=== PATIENT | female | born 1930 | race Caucasian/White ===

== ENCOUNTER 2016-10-13 19:49 | Inpatient (IN) | payer MEDICARE, OTHER ==
--- NOTE | ~2016-10-13 | CN ---
Consultation Report [facility] [address] [place]. [address] NAME: ANDERS GIPSON : 30 STATUS : ADM IN [facility]#: [id number] AGE: 86 ADM/REG DATE : 10/13/16 MR#: [id number] REPORT SERV DATE: 10/14/16 DICTATED BY: RODRIGO DRAPER DATE: 10/14/16 REPORT STATUS : Draft TRANSCRIBED BY: MODL DATE: 10/14/16 INFECTIOUS DISEASE CONSULT DATE OF CONSULTATION: REASON FOR CONSULT: MSSA bacteremia HISTORY OF PRESENT ILLNESS: 86 years old white lady, with reported history of chronic kidney disease, diabetes, hypertension, TIA, hypothyroidism, dementia, possible CHF, and right hip replacement, who was admitted at [facility] for fever, hypoxemia, and right hip pain. The patient provided some information and her granddaughter who knows few data. I also reviewed the papers from [facility]. The patient had the right total hip replacement done in [place] in 2004 or 2011 it is not clear. She has not had problems until within the last year or so. She might have had right hip pain for several months. She had a toe infection several months ago. The hip became severe and she could not walk for about a week. She then it sounds like developed fever, whole body aches, and may be shortness of breath, and she was taken to [facility]. There they thought that maybe she has a pneumonia and started on Rocephin and azithromycin. Then blood cultures came positive reportedly for MSSA. Antibiotics were changed at some point to vancomycin, meropenem, and azithromycin, and then to Ancef. On admission urinalysis was found to be remarkable. WBC was 12. Procalcitonin was not elevated. Creatinine was 1.4. We do not really have further data from [facility] for exam. We do not have the echocardiogram report, any imaging beside the chest x-ray, but it sounds like they tried to aspirate the hip on the 10/11/2016, could not get anything, so, I guess no cultures were done. She was transferred here last night supposedly for ID consult and because the family wanted her transferred. Highest temp since transfer was 100.8. She is on 2 L of oxygen. Lab work here shows a CRP of 153, BNP of 713, hemoglobin A1c of 5.4, WBC 9, hemoglobin 9, segments 73, bands 1, INR 2.8. Upon discussing with the patient, she has some dyspnea. She has also bedridden now. She has severe right hip pain. She is afraid to move or turn. She is practically bedridden. She has she has been constipated for several days. No vomiting, maybe occasional cough. She has a Lares catheter before that, she reported no urinary symptoms. No recent skin lesions are reported. No other joints hurting. PAST MEDICAL HISTORY: As mentioned above plus history of cholecystectomy and hyperlipidemia. SOCIAL HISTORY: She is a . Lives with her daughter. She has no pets. Does not smoke. She might have had secondhand smoking exposure in the past. FAMILY HISTORY: Diabetes. Consultation Report [address] [place] [address] [place]. [address] NAME: ANDERS GIPSON : 30 STATUS : ADM IN [facility]#: [id number] AGE: 86 ADM/REG DATE : 10/13/16 MR#: [id number] REPORT SERV DATE: 10/14/16 DICTATED BY: RODRIGO DRAPER DATE: 10/14/16 REPORT STATUS : Draft TRANSCRIBED BY: MONICA DATE: 10/14/16 ALLERGIES: SULFA CAUSES STOMACH UPSET. MEDICATIONS: I do not have the initial admission medications from [facility]. The H and P there mentions amlodipine, atenolol, Celexa, clonazepam at bedtime, Donepezil at bedtime, gabapentin, Lasix, levothyroxine, potassium, and Coumadin. PHYSICAL EXAMINATION: GENERAL: On exam, she is awake. HEENT: Mild oral mucosal erythema. LUNGS: Coarse sounds. Clear to auscultation. HEART: Regular rhythm. Maybe a soft murmur at the upper sternal borders and precordial area. ABDOMEN: Obese. Nontender to palpation. MUSCULOSKELETAL: Right hip, she is afraid to move it. There is an area of tenderness over the right side of the sacrum. No tenderness to palpation over the sacral spine. No buttock decubitus. When she moves the right ankle the right hip hurts. She has a Lares catheter. Feet without any open wounds. ASSESSMENT AND PLAN: 1. Reported Methicillin-sensitive Staphylococcus aureus bacteremia and sepsis at [facility]. 2. Severe right hip pain. At some point, she indicated the groin, the posterior hip, so, it is really unclear. She has a right hip replacement. 3. History of dementia, chronic kidney disease, hypertension, atrial fibrillation. With the pain elicited in the right hip by moving the foot one might consider sciatica type pain. Hip x-rays and MRIs were ordered but not done. She was seen by Orthopedics. Continue Ancef, repeat blood cultures, request more information from [facility]. Depending on the findings, we might need to consider transesophageal echocardiogram. Also maybe we can get more information from the other family members. RASHEL/MONICA Rodrigo Draper M.D. / [id number] CC: Joon Moon M.D.
--- NOTE | ~2016-10-13 | OP ---
Record Of Operation [facility] [address] [place]. 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 PROCEDURE: Right total hip revision arthroplasty, complex. SURGEON: Masood Simmons M.D. AUTO MACHINIST: See chart. DESCRIPTION OF PROCEDURE: The patient was taken to the operating room and placed supine on the table in normal fashion without incident. General anesthetic was induced per the anesthesiologist. The patient was carefully positioned, padded, prepped, and draped in normal sterile fashion. Sharp dissection was made through the old incision with electrocautery through the fat. Sharp quad splitting approach was carried out. The IT band was split in line with its fibers. There was an area of fatty necrosis that was sent for cultures. This was prior to going to the IT band. After going to the IT band, there was no evidence of infection, but only hematoma. The Charnley retractor was placed over moist laps. Posterior capsulectomy was performed. There was abundant granulation tissue and synovial tissue, but no evidence of purulence whatsoever. She has a very severe protrusio deformity and grossly loose prosthesis. I osteotomized the trochanter to allow access to the deeply protruded bipolar arthroplasty-type device. This allowed for it to be dislocated after osteotomizing the superolateral aspect of the acetabulum. The femoral component was easily removed as it was grossly loose. There was benign-appearing synovium and granulation and lytic tissue around it, none of which appeared infected. I curetted out the acetabular fossa and used sequential reamers to a 55 and then placed a trial socket. With the trial liner in place, attention was directed to the proximal femur which was prepared with sequential reamers. I felt several times that a long reverse biting curette to be sure there was no violation of the canal distally. Frozen sections were sent of tissue from the hip joint itself. I was concerned that one area was around an old suture. Sequential reamers were used to a 16 and with trial components in place, there was excellent stability and recreation of a significant portion of her leg length. I reviewed the frozen section results with the pathologist at length who said there were many areas that appeared not to be infected, but there was one area that had acute inflammation. In the setting of her being 86 years old, having severe and incapacitating pain by her report for several months stating that it has hurt for approximately 10 years since it was done and now and knowing how difficult a two stage would be on her, I felt that the frozen section results were not consistent with the gross and clinical presentation, and therefore based on the majority of the frozen section looking like no infection and the fact that Record Of Operation [facility] [address] [place]. [address] NAME: ANDERS GIPSON : 30 STATUS : ADM IN PAT#: [id number] AGE: 86 ADM/REG DATE : 10/13/16 MR#: [id number] REPORT SERV DATE: 10/18/16 DICTATED BY: BE SIMMONS DATE: 10/18/16 REPORT STATUS : Draft TRANSCRIBED BY: MONICA DATE: 10/18/16 there clearly was no gross evidence of infection, I opted to treat her as though this was a single-stage reimplantation for infection. I meticulously debrided the soft tissue with the copious irrigation with pulsatile lavage for several liters. I proceeded with the reconstruction placing the cable around the proximal aspect of the distal femur, it was provisionally tightened. The actual 56 mm multi-hole cup was placed and impacted. Multiple screws were placed in a standard fashion with drill depth gauge and self-tapping screw placement. They gave excellent fixation. With the trial liner in place, the actual 8 inch, 16.5 small solution stem was placed, impacted, the previously mentioned cable was tightened and crimped. I placed the actual constrained liner that was impacted, new ball placed on the cleansed trunnion. Hip relocated and the locking ring locked into position. Two cables were passed around the proximal femur just distal to the lesser trochanter around the trochanteric osteotomized fragment which with a cable tree inspector was used to anatomically repair the trochanter. These were tightened, crimped, and cut short. The wound was again copiously irrigated. I placed the absorbable antibiotic beads. It contained vancomycin and tobramycin in case it was a real finding on her frozen section. It should be noted that while she was reported to have been bacteremic at an outside hospital that the most recent blood cultures as well as the aspirate from her hips were noted to be negative. I did attempt a cell count on her hip but because it was so clotted was able to get useful information, but did get a gram stain reviewed few white blood cells and no organisms and of course this was all preoperatively. The hip was carefully closed in a layered fashion over a medium ConstaVac drain distally and anteriorly. COMPLICATIONS: None. SPECIMENS: Frozen reported cultures. BLOOD LOSS: About 300 mL. She was noted to start with a preoperative hemoglobin in the 9 range and received 2 units of intraoperative blood. WTB/MODL Masood Simmons M.D. / [id number] CC: Shanel Goldsmith M.D.
--- NOTE | ~2016-10-13 | DS ---
Discharge Summary [facility] [address] [place] [place]. [address] NAME: ANDERS GIPSON : 30 STATUS : ADM IN [facility]#: [id number] AGE: 86 ADM/REG DATE : 10/13/16 MR#: [id number] REPORT SERV DATE: 10/22/16 DICTATED BY: SHANEL FAN DATE: 10/21/16 REPORT STATUS : Draft TRANSCRIBED BY: MODL DATE: 10/21/16 ADMISSION DATE: 10/13/2016 DISCHARGE DATE: DISCHARGE DIAGNOSES: Current interim discharge summary diagnoses include: 1. Methicillin-susceptible Staphylococcus aureus bacteremia, the patient has been started on Ancef. 2. 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 Gustavo Ross on 10/18/2016. 3. Suspected right hip infection though cultures have remained negative as of today. 4. Chronic atrial fibrillation with bradycardia on admission, resolved. 5. Diabetes type 2, hemoglobin A1c 5.4. 6. Hypertension. 7. Postoperative anemia, status post transfusion. 8. Hypothyroidism. 9. Dementia. 10.Morbid obesity. 11.Debility and weakness. CONSULTANTS ON THE CASE: 1. Dr. Rodrigo Vazquez, Infectious Disease. 2. Dr. Chris Vu, Cardiology. 3. Dr. Gustavo Ross, Orthopedics. PROCEDURES DONE DURING THIS HOSPITALIZATION: Include a right total hip revision arthroplasty for a failed right total hip arthroplasty with suspected possible infected right hip and sepsis on admission. Also, during this hospitalization, the patient underwent a CT of the abdomen and pelvis on 10/16/2016 showing the patient has anasarca, no suspicious fluid collections, diverticulosis of the colon with no inflammation, cardiomegaly, and right renal cyst which is measuring 2.9 x 2.4 x 1.7 cm where as a large amount of artifact in the pelvis due to the right total hip prosthesis but no suspicious fluid collection. Also, the patient underwent an MRI of the lumbar spine on 10/15/2016 showing no stenoses. There was abundant edema in the presacral space and in the dependent subcutaneous tissue in the back related likely to third-spacing of fluid but no focal collection could be identified. An MRI of the pelvis without contrast has been ordered on the , and this showed some fluid collection in the posterolateral with respect to the hip joint. It has been followed by an MRI with contrast showing a small triangular fluid collection with extensive superficial subcutaneous edema, clinical correlation recommended for cellulitis. Chest x-ray showed some bilateral infiltrates likely secondary to mild congestion. Blood cultures remain negative at discharge. Fluid cultures and surgery species cultures have remained currently negative, and there is an echo from [facility] from 10/08/2016 that shows normal appearance of the valves, just mild mitral regurgitation, no stenoses, normal appearance of the tricuspid valve, no pericardial effusion, normal left ventricular systolic function, normal left atrium. This is a very pleasant 86-year-old female, who has been admitted by Dr. Roger Nazario on Discharge Summary [address] [address] NAME: ANDERS GIPSON : 30 STATUS : ADM IN [facility]#: [id number] AGE: 86 ADM/REG DATE : 10/13/16 MR#: [id number] REPORT SERV DATE: 10/22/16 DICTATED BY: SHANEL FAN DATE: 10/21/16 REPORT STATUS : Draft TRANSCRIBED BY: MONICA DATE: 10/21/16 10/14/2016; transferred from [facility] to our hospital for further evaluation and workup of MSSA bacteremia. For about one month or so, according to the patient and the family, the patient had had increasing right leg pain. She did have, according to the patient and the family, multiple prior surgeries on the right hip and usually walks with a walker for balance, but for at least one week prior to admission, she walked very hardly lately due to severity of the right hip pain. There was also reported fever that was intermittent and the progressive deterioration of her functional status with confusion to the point that she went to the hospital. Her right total hip replacement had been done in [place] in 2004. As I said, the hip pain became so severe that she could not walk for about one week, and she developed fever, body aches, and shortness of breath. They went to [facility], they thought she might have pneumonia, but the blood cultures came positive for MSSA. The patient has been initially at some point on vancomycin/meropenem but changed to Ancef, and then sent to [facility]. The patient's family requested transfer to [facility], and the patient has been transferred for further evaluation and treatment. For further details, please see history and physical exam of Dr. Roger Nazario. The patient has been seen in consult initially for her MSSA bacteremia and sepsis at [facility] by Infectious Disease. It was unclear initially the source of the MSSA bacteremia. Except the severity of the right hip pain, there were no other suspicious sources of infection. X- rays and MRIs have been ordered as above and Orthopedics has been consulted. The patient has been seen by Dr. Gustavo Ross from Ortho Service, who evaluated the patient, looked at the images, and after discussing with Dr. Rodrigo Vazquez, although there were no really clear signs of infection and Radiology has been consulted for a fluoro-guided right hip aspiration which has not yielded any positive cultures. However, due to the severity of the right hip pain and possibility that was questionable and right total hip arthroplasty, Dr. Gustavo Ross and Dr. Rodrigo Vazquez agree that the patient will benefit from a right hip revision which has been performed by Dr. Ross on 10/18/2016. So far, the cultures have remained negative. The patient has been seen in consult as well as by [facility], Dr. Chris Vu, due to the fact that she has developed significant bradycardia on admission. Her beta-blockers have been held, she has been watched, no further recommendation per Cardiology has been given, and her bradycardia slowly resolved. There were no indications for pacemaker. Currently, the patient is receiving Ancef per Infectious Disease recommendation. The duration of the Ancef would be about [address] Rodrigo Vazquez, and the patient has been referred to inpatient rehab. Hopefully, the patient would be able to go shortly to [facility]. The patient has been recovering after surgery very slowly, but she has been referred to [facility] for inpatient rehab. MEDICATIONS: Current medications at interim discharge summary include Norvasc 10 mg p.o. daily, Ancef 2 g IV every 8 hours, Celexa 20 mg p.o. daily, Klonopin 0.5 p.o. at bedtime, Colace 100 t.i.d., Aricept 10 mg p.o. at bedtime, Pepcid 20 p.o. daily, iron sulfate 300 p.o. at breakfast and supper, NovoLog sliding scale level 1, Synthroid 88 mcg p.o. daily, Claritin 10 mg p.o. daily, Namenda 5 mg p.o. at bedtime and 10 mg p.o. daily, multivitamin one tablet p.o. daily, MiraLAX one packet p.o. daily, and Coumadin sliding scale. Currently, patient awaiting inpatient rehab. My partner is going to start seeing Anders Wheat from 10/23/2016. [address]charge Summary [address] [place] [address] NAME: ANDERS GIPSON : 30 STATUS : ADM IN [facility]#: [id number] AGE: 86 ADM/REG DATE : 10/13/16 MR#: [id number] REPORT SERV DATE: 10/22/16 DICTATED BY: SHANEL FAN DATE: 10/21/16 REPORT STATUS : Draft TRANSCRIBED BY: MONICA DATE: 10/21/16 CF/MONICA Shanel Fan M.D. / [id number] CC: Shanel Fan M.D.
--- NOTE | ~2016-10-13 | CN ---
Consultation Report [facility] [address] [place]. [address] NAME: ANDERS GIPSON : 30 STATUS : ADM IN [facility]#: [id number] AGE: 86 ADM/REG DATE : 10/13/16 MR#: [id number] REPORT SERV DATE: 10/17/16 DICTATED BY: HORACE LUTZ DATE: 10/17/16 REPORT STATUS : Draft TRANSCRIBED BY: MODL DATE: 10/17/16 CARDIOVASCULAR CONSULTATION DATE OF CONSULTATION: 10/17/2016 CHIEF COMPLAINT: Bradycardia. HISTORY OF PRESENT ILLNESS: The patient is an 86-year-old woman who sees my partner, Dr. Ventura Campa in [place]. From a cardiovascular standpoint, she has a history of chronic atrial fibrillation and previous TIA, on long-term anticoagulation with Coumadin. She is rate controlled with atenolol 50 mg daily. She has no history of coronary artery disease or congestive heart failure. Last echocardiogram in 2009 shows EF 65%. She was admitted initially to [facility] with concerns about staph sepsis and transferred to [facility] for further evaluation with concerns of possible infected hip. She is being seen by the ID Service and Orthopedic Service. We are consulted secondary to concerns of bradycardia developing over the last 1-2 days. Heart rates in the 30s at night with up to a 2-3 second pause at times. She has been off her atenolol for about 30 hours or so. Heart rate is now in the 40s. The patient is asymptomatic with no symptoms of syncope, presyncope, or chest pain. PAST MEDICAL HISTORY: 1. Chronic atrial fibrillation. 2. History of TIA. 3. Hypertension. 4. Hypercholesterolemia. 5. Type 2 diabetes. SOCIAL HISTORY: She does not smoke or drink alcohol. FAMILY HISTORY: There is no family history of early coronary artery disease. REVIEW OF SYSTEMS: A complete review of systems was obtained, which is negative in detail except as mentioned above in the HPI. ALLERGIES: SULFA. MEDICATIONS: At home included: Atenolol 50 mg, now stopped; calcium; citalopram; benazepril; hydrocodone; iron; Jantoven 3 mg daily; Synthroid 88 mcg daily; nitroglycerin; pioglitazone; torsemide 20 mg daily; and tramadol. PHYSICAL EXAMINATION: Consultation Report [facility] [address] [place]. [address] NAME: ANDERS GIPSON : 30 STATUS : ADM IN PAT#: [id number] AGE: 86 ADM/REG DATE : 10/13/16 MR#: [id number] REPORT SERV DATE: 10/17/16 DICTATED BY: HORACE LUTZ DATE: 10/17/16 REPORT STATUS : Draft TRANSCRIBED BY: MONICA DATE: 10/17/16 VITAL SIGNS: Blood pressure 150/67, heart rate of 49 and regular, respiratory rate of 14. GENERAL: Comfortable, in no acute distress. HEENT: Anicteric. No xanthelasma. Lips without cyanosis. NECK: No JVD. Carotids 2+ and symmetric. No carotid bruits. LUNGS: CTA bilaterally. No wheezes or rhonchi. No accessory muscle use. COR: Bradycardic. Irregular. Normal S1, S2. ABD: Soft, nontender, nondistended. Normal bowel sounds. No abdominal bruits. EXT: No clubbing, cyanosis or edema 2+ and symmetric distal pulses. SKIN: Warm. Dry. No venous stasis changes. MS: No kyphosis. NEURO/PSYCH: Oriented x3. No anxiety or depression. LABORATORY STUDIES: Potassium of 4.8, creatinine of 0.84, hematocrit of 29, troponin of less than 0.02. EKG: A 12-lead EKG is not available, but telemetry strips show atrial fibrillation, variable heart rates now in the 40s. IMPRESSION: This is an 86-year-old woman with a longstanding history of chronic atrial fibrillation presenting with a clinical syndrome consistent with sick sinus syndrome. We will try her off her atenolol. Hopefully, her heart rate will improve. She is not really having much in the way of symptoms. I am not too anxious to consider a pacemaker, since there is an active staph bacteremia. DONNIE/MONICA Horace Lutz M.D. / [id number] CC: Shanel Goldsmith M.D.
--- NOTE | ~2016-10-13 | HP ---
History And Physical [facility] [address] [place]. [address] NAME: ANDERS GPISON : 30 STATUS : ADM IN [facility]#: [id number] AGE: 86 ADM/REG DATE : 10/13/16 MR#: [id number] REPORT SERV DATE: 10/14/16 DICTATED BY: SAADIA VILLALPANDO DATE: 10/13/16 REPORT STATUS : Draft TRANSCRIBED BY: MODL DATE: 10/13/16 DATE OF ADMISSION: 10/13/2016 CHIEF COMPLAINT: An 86-year-old female presenting with increasing right hip pain, debilitation, and transferred to our hospital for further evaluation and workup of MSSA bacteremia. HISTORY OF PRESENT ILLNESS: The patient's history was obtained through an interview with the patient, and telephone conversation with her son coupled with review of medical records obtained from [facility]. The patient for about a month or so has been having increasing right leg pain. Back around 2011 she had a right hip replacement, but generally had no pain related to this until this last month. But it has just been in the last week that the right hip has become excruciatingly painful with pain radiating down into the right knee and all the way to the feet, sometimes going up into the middle back as well. It is a 10/10 pain and it has gotten to the point where for about a week the patient has been unable to ambulate without assistance. This was one of the main complaints that she had when she presented to [facility] on 10/07/2016. But also when the patient had presented to [facility], she had an O2 saturation of 80% on room air. Had a temperature of 100.1, and an elevated white blood cell count just over 11. Initial blood cultures were found to be positive for MSSA bacteremia which was sensitive to cefazolin, and the patient has improved with supportive care of her pulmonary disease (seemed to have been pulmonary edema exacerbated by acute illness) and her infection seems to be under improved control with IV antibiotics. At outlying facility an attempt to aspirate the right hip was made, but was "unsuccessful." There is also a reported negative transthoracic echocardiogram performed. The patient has no current shortness of breath. No chest pain. No nausea or vomiting. No fevers and chills now. The family states that she has had increasing confusion related to her dementia over the last few weeks, but it seems to have improved with hospitalization. No change of bowel or bladder habit. No cough. No rash. REVIEW OF SYSTEMS: Otherwise, a 14-point review of systems was obtained and was negative. PAST MEDICAL HISTORY: 1. Diabetes. 2. Possible congestive heart failure ? atrial fibrillation, on Coumadin, followed by Dr. Campa. History And Physical [address] [address] NAME: ANDERS GIPSON : 30 STATUS : ADM IN [facility]#: [id number] AGE: 86 ADM/REG DATE : 10/13/16 MR#: [id number] REPORT SERV DATE: 10/14/16 DICTATED BY: SAADIA VILLALPANDO DATE: 10/13/16 REPORT STATUS : Draft TRANSCRIBED BY: MONICA DATE: 10/13/16 3. Hypertension. 4. Dementia. 5. Transient ischemic attack. 6. Irritable bowel syndrome. 7. Anemia. 8. Elevated cholesterol. 9. Hypothyroidism. PAST SURGICAL HISTORY: 1. Cholecystectomy. 2. Right hip surgery in 2011. 3. Hiatal hernia surgery ? ALLERGIES: UNKNOWN AT THIS TIME. WE HAVE REQUESTED PHARMACY TO INVESTIGATE. SOCIAL HISTORY: No tobacco abuse. No alcohol abuse. Lives in [place], [place], with her daughter. She has two daughters and one son. The son lives next door. She has been a for about 20 years. FAMILY HISTORY: Diabetes. Son of "paint poisoning". CURRENT MEDICATIONS: 1. Cefazolin 2 g IV q.8 hours. 2. Citalopram 10 mg p.o. daily. 3. Clonazepam 0.5 mg p.o. daily. 4. Aricept 10 mg p.o. daily. 5. Fentanyl 25 mcg patch. 6. Lasix 20 mg daily. 7. Neurontin 100 mg p.o. t.i.d. 8. Insulin. 9. Levothyroxine 88 mcg p.o. daily. 10.Potassium. 11.Tylenol. 12.Clonidine p.r.n. 13.Dilaudid p.r.n. 14.Zofran p.r.n. PHYSICAL EXAMINATION: VITAL SIGNS: Temperature 98.2, pulse 75, blood pressure 149/66, respiratory rate 18, and O2 saturation 96% on room air. GENERAL: A pleasant, cooperative female, in no evidence of acute distress. HEENT: Pupils equal, round, and reactive to light. No conjunctival pallor. No scleral icterus. Nares are patent. Oropharynx is clear of obstruction. Moist mucous membranes. NECK: Trachea midline. No thyromegaly. LYMPH: No cervical lymphadenopathy. No supraclavicular lymphadenopathy. RESPIRATORY: Clear to auscultation at bases. No wheezes, rales, or rhonchi. Normal respiratory effort. History And Physical [address] [place]. [address] NAME: ANDERS GIPSON : 30 STATUS : ADM IN [facility]#: [id number] AGE: 86 ADM/REG DATE : 10/13/16 MR#: [id number] REPORT SERV DATE: 10/14/16 DICTATED BY: SAADIA VILLALPANDO DATE: 10/13/16 REPORT STATUS : Draft TRANSCRIBED BY: MONICA DATE: 10/13/16 CARDIOVASCULAR: Regular rate and rhythm. No murmurs, rubs, or gallops. No extremity edema is appreciated. ABDOMEN: Soft, nontender, and nondistended. Normal bowel sounds auscultated throughout. No hepatosplenomegaly. DERMATOLOGICAL: Warm and dry extremities. No pallor. No cyanosis. No erythema over the right hip. PSYCHIATRIC: Normal affect. Good mood. Alert and oriented x3. LABORATORY DATA: White blood cell count 10.5, hemoglobin 9.2, hematocrit 28.3, and platelets 310. Sodium 136, potassium 4.3, chloride 104, bicarb 25, BUN 19, creatinine 0.77, and glucose 174. INR 2.8. STUDIES: Reported echocardiogram was negative. ASSESSMENT AND PLAN: 1. Methicillin-sensitive Staphylococcus aureus bacteremia. Place on IV vancomycin. Consult Dr. Vazuqez, Infectious Disease physician. Discussed the case over the phone with him. 2. Right hip pain, suspected infection? We will obtain an MRI with and without contrast of the lumbosacral spine and right hip. The patient "failed" joint aspiration at [facility]. 3. Dementia. 4. Atrial fibrillation. Good INR. Check telemetry. 5. Diabetes. Check hemoglobin A1c. Place on sliding scale insulin. MODESTAL/CRL Saadia Villalpando M.D. / [id number] CC: Jed Daniels M.D. Lindsay C Crawford, M.D.
--- NOTE | ~2016-10-13 | DS ---
Discharge Summary [place] [id number] [place]. [address] NAME: ANDERS GIPSON : 30 STATUS : DIS IN PAT#: [id number] AGE: 86 ADM/REG DATE : 10/13/16 MR#: [id number] REPORT SERV DATE: 10/25/16 DICTATED BY: VALENTE HOU DATE: 10/24/16 REPORT STATUS : Draft TRANSCRIBED BY: MODL DATE: 10/24/16 ADMISSION DATE: 10/13/2016 DISCHARGE DATE: 10/24/2016 CONSULTING PHYSICIANS: Dr. Ross for Ortho. Dr. Vazquez for ID. [facility] covering for Dr. Campa as an outpatient pediatric np. FINAL DIAGNOSES: 1. Methicillin-susceptible Staphylococcus aureus bacteremia. 2. 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 3. Atrial fibrillation and bradycardia. 4. History of transient ischemic attack. 5. Hypertension. 6. Diabetes. 7. Postoperative anemia, status post 4 units of blood transfusion. 8. Obesity. 9. Hypothyroidism. 10.Dementia. HOSPITAL COURSE: Please refer to the H and P done by Dr. Roger Nazario on 10/14/2016 and the interim discharge summary done by Dr. Goldsmith on 10/22/2016. Since I took care of this patient again, the patient has been doing well and cleared from both ID and orthopedic point of view. Cardiology had signed off several days back and said to keep the patient off atenolol and she is not a candidate for any kind of an intervention. The patient was waiting for rehab and we finally got one for her today and she will be transferred there. She will be following up with the rehab doctor and following up with PCP, Dr. Velásquez, after rehab discharge; follow up with Ortho in two weeks; follow up with Dr. Vazquez in two to four weeks with a weekly complete metabolic panel and CBC, and follow up with Cardiology, Dr. Campa. The patient will be on the following medications, Norvasc 10 mg a day, Ancef 2 g IV q.8 for 34 more days, Celexa 20 mg a day, Colace 100 mg three times a day, Aricept 10 mg a day, Pepcid 20 mg a day, iron 300 mg twice a day, Synthroid 88 mcg a day, Claritin 10 mg a day, Namenda 5 mg at bedtime and 10 mg in the morning, multivitamin once a day, MiraLAX one packet a day, Coumadin per sliding scale, clonazepam 0.5 mg at bedtime p.r.n. anxiety. She will be off the atenolol, potassium, torsemide, and aspirin. She can take Wolcott 7.5/325 one tab three times a day p.r.n., Voltaren gel as needed, and Nitrostat as needed. She will be off the Actos, as her diabetes has been under control with the most recent hemoglobin A1c at 5.4, and this would avoid further edema on the patient. This has been explained to the patient, daughter, and granddaughter. TIME SPENT: 35 minutes. Discharge Summary [address] [address] NAME: ANDERS GIPSON : 30 STATUS : DIS IN PAT#: [id number] AGE: 86 ADM/REG DATE : 10/13/16 MR#: [id number] REPORT SERV DATE: 10/25/16 DICTATED BY: VALENTE HOU DATE: 10/24/16 REPORT STATUS : Draft TRANSCRIBED BY: MONICA DATE: 10/24/16 TRISTON/MONICA Valente Hou M.D. / [id number] CC: Jed Daniels M.D.
--- NOTE | ~2016-10-13 | HP ---
History And Physical [place] [id number] [place] [place]. [address] NAME: ANDERS GIPSON : 30 STATUS : ADM IN [facility]#: [id number] AGE: 86 ADM/REG DATE : 10/13/16 MR#: [id number] REPORT SERV DATE: 10/14/16 DICTATED BY: BE SIMMONS DATE: 10/14/16 REPORT STATUS : Draft TRANSCRIBED BY: MODL DATE: 10/14/16 DATE OF ADMISSION: 10/13/2016 CHIEF COMPLAINT: Right hip pain. HISTORY: This is an 86-year-old female, transferred from [facility] in [place] with severe right hip pain and bacteremia versus sepsis. She reports having had multiple previous surgeries in the right hip, the last one by Dr. Aguirre in 2004. She usually walks with a walker for balance but has been unable to walk hardly at all due to severe right hip pain for about 6 days now. She reported some fever, which here has been a max of 100.8. No significant orthopedic pains elsewhere. ALLERGIES: SULFA MEDICATIONS. SEE CHART. PAST MEDICAL HISTORY: History of atrial fibrillation, on Coumadin; dementia. She has a primary care doctor in [place]. PAST SURGICAL HISTORY: The chart reports hip surgeries in 2014 and 2015, but according to the family, her last hip surgery was in 2004. No reported anesthetic complications. FAMILY HISTORY: Noncontributory. REVIEW OF SYSTEMS: As above with fevers reported at home, increased pain at the hip and decreased walking. PHYSICAL EXAMINATION: GENERAL: She is alert and oriented x3, appears very pleasant to me. HEENT: Atraumatic, normocephalic. NECK: Supple. CHEST: Symmetric. EXTREMITIES: Both upper extremities and left lower extremity without acute trauma. Right lower extremity, her hip is moderately tender to touch with severe pain with any attempted range of motion of the hip whatsoever. Compartments are supple. She is obese. Thready pulses. She moves relatively symmetrically as far as neurologically, with no reported sensory changes, but her right hip is clearly severely painful with any range of motion. ASSESSMENT: Right hip multiple previous surgeries. Unclear exactly what that surgical history is. Reportedly bacteremic. Clinically, she does not appear to be necessarily infected but could certainly be harboring a deep infection. They reported that there was an aspiration attempted in [place] that was not successful. PLAN: At this point, the x-rays I requested a few hours ago are not available and she has not had any x-rays done of her hip and did not bring any with her from the outside hospital. I need the x-rays to start with of the hip and we will try to determine from there whether she has a septic or aseptic process going on. History And Physical [address] [place]. [address] NAME: ANDERS GIPSON : 30 STATUS : ADM IN [facility]#: [id number] AGE: 86 ADM/REG DATE : 10/13/16 MR#: [id number] REPORT SERV DATE: 10/14/16 DICTATED BY: BE SIMMONS DATE: 10/14/16 REPORT STATUS : Draft TRANSCRIBED BY: MONICA DATE: 10/14/16 WTB/MONICA Masood Simmons M.D. / [id number] CC: Joon Moon M.D.
[2016-10-13] MEDS ORDERED: ATEN50 PO (22:57)
[2016-10-13] MEDS ORDERED: NORV10 PO (22:57)
[2016-10-13] MEDS ORDERED: GABAPENTIN PO (22:58)
[2016-10-13] MEDS ORDERED: ARICEPT10 PO (22:58)
[2016-10-13] MEDS ORDERED: CELEXA20 PO (22:58)
[2016-10-13] MEDS ORDERED: KLONO5 PO (22:58)
[2016-10-13] MEDS ORDERED: SYN88 PO (22:59)
[2016-10-13] MEDS ORDERED: KLOR-CON M2020 MEQ PO (22:59)
[2016-10-13] MEDS ORDERED: DEMA20 PO (22:59)
[2016-10-13] MEDS ORDERED: JANTOVEN3 MG PO (22:59)
[2016-10-13] MEDS ORDERED: *UNABLE3 (23:03)
[2016-10-13] MEDS ORDERED: ASAB PO (23:03)
[2016-10-13] MEDS ORDERED: VOLTAREN1 % TOP (23:04)
[2016-10-13] MEDS ORDERED: NORCO1 TA2 PO (23:04)
[2016-10-13] MEDS ORDERED: NITROSTAT0.4 MG SL (23:04)
[2016-10-14 04:58] LABS: INTERNATIONAL NORMAL RATI 2.8 UNITS (-); PROTIME (NOT ORD) 28.9 SEC (12.0-14.5)
[2016-10-14 05:01] LABS: HEMATOCRIT 28.8 % (36.0-48.0); HEMOGLOBIN 9.2 g/dL (12.0-16.0); MEAN CORPUS HGB CONC 31.9 g/dL (32.0-36.0); MEAN CORPUSCULAR HEMOGLOB 28.3 pg (26.0-34.0); MEAN CORPUSCULAR VOLUME 88.6 fL (80-100); MEAN PLATELET VOLUME 8.8 fL (9.2-13.0); PLATELET COUNT 360 10/3/uL (150-400); RBC DISTRIBUTION WIDTH 15.1 % (12.0-16.0)
[2016-10-14 05:06] LABS: B NATRIURETIC PEPTIDE (BNP) 713.8 PG/ML (< 100.0)
[2016-10-14 05:07] LABS: MANUAL DIFF YES %; RED CELL COUNT 3.25 10/6/uL (4.0-5.6); WHITE BLOOD CELLS 9.8 10/3/uL (4.5-10.5)
[2016-10-14 05:17] LABS: A/G RATIO 0.4 (0.7-1.9); ALBUMIN 1.9 G/DL (3.5-5.0); ALKALINE PHOSPHATASE 99 U/L (45-117); BUN (BLOOD UREA NITROGEN) 18 MG/DL (6-23); CALCIUM, SERUM 8.7 MG/DL (8.5-10.4); CHLORIDE, SERUM 108 MMOL/L (96-112); CO2 (CARBON DIOXIDE) 28 MMOL/L (24-34); CREATININE 0.86 MG/DL (0.55-1.02); GFR AFRICAN AMERICAN 71 ML/MIN (>=60); GFR NON AFRICAN AMERICAN 61 ML/MIN (>=60); GLOBULIN 4.5 G/DL (2.5-4.1); GLUCOSE, SERUM 102 MG/DL (60-99); POTASSIUM, SERUM 4.6 MMOL/L (3.5-5.3); SGOT(AST) 48 U/L (5-40); SGPT(ALT) 23 U/L (5-65); SODIUM, SERUM 142 MMOL/L (135-148); TOTAL BILIRUBIN 0.2 MG/DL (0-1.2); TOTAL PROTEIN 6.4 G/DL (6.0-8.5); TROPONIN I <0.02 NG/ML (<0.05)
[2016-10-14 05:40] LABS: BAND NEUTROPHILS 1 %; EOSINOPHILS 1 %; LYMPHOCYTES 15 %; LYMPHOCYTES ABSOLUTE (CALC) 1.47 10/3/uL (0.67-4.30); MONOCYTES 9 %; MONOCYTES ABSOLUTE (CALC) 0.88 10/3/uL (0.21-1.20); MYELOCYTES 1 %; NEUTROPHILS ABSOLUTE (CALC) 7.25 10/3/uL (2.02-8.40); PLATELET ESTIMATE ADQ (ADEQUATE); RBC MORPHOLOGY NORM (NORMAL); SEGMENTED NEUTROPHIL (0) 73 %; TOTAL NUCLEATED CELLS 100
[2016-10-14 07:28] LABS: GLYCOHEMOGLOBIN (HbA1c) 5.4 % (4.7-6.1)
[2016-10-14] MEDS ORDERED: CLARIT10 PO (22:23)
[2016-10-14] MEDS ORDERED: NAMENDA5 PO (22:24)
[2016-10-14] MEDS ORDERED: ACTOS15 PO (22:24)
[2016-10-15 06:33] LABS: INTERNATIONAL NORMAL RATI 2.1 UNITS (-)
[2016-10-15] MEDS ORDERED: NAMENDA10 MG PO (10:48)
[2016-10-16 06:49] LABS: INTERNATIONAL NORMAL RATI 2.1 UNITS (-); PROTIME (NOT ORD) 23.6 SEC (12.0-14.5)
[2016-10-16 06:56] LABS: BASOPHILS 0.6 %; BASOPHILS ABSOLUTE 0.04 10/3/uL (0.0-0.16); EOSINOPHILS 2.5 %; EOSINOPHILS ABSOLUTE 0.18 10/3/uL (0.0-0.53); HEMATOCRIT 29.7 % (36.0-48.0); HEMOGLOBIN 9.1 g/dL (12.0-16.0); IMMATURE GRANULOCYTES 2.5 %; IMMATURE GRANULOCYTES ABSOLUTE 0.18 10/3/uL (0.0-0.11); LYMPHOCYTES 17.1 %; LYMPHOCYTES ABSOLUTE 1.22 10/3/uL (0.67-4.30); MEAN CORPUS HGB CONC 30.6 g/dL (32.0-36.0); MEAN CORPUSCULAR HEMOGLOB 27.8 pg (26.0-34.0); MEAN CORPUSCULAR VOLUME 90.8 fL (80-100); MEAN PLATELET VOLUME 8.9 fL (9.2-13.0); MONOCYTES 11.9 %; MONOCYTES ABSOLUTE 0.85 10/3/uL (0.21-1.20); NEUTROPHILS 65.4 %; NEUTROPHILS ABSOLUTE 4.66 10/3/uL (2.02-8.40); PLATELET COUNT 416 10/3/uL (150-400); RBC DISTRIBUTION WIDTH 15.2 % (12.0-16.0); RED CELL COUNT 3.27 10/6/uL (4.0-5.6); WHITE BLOOD CELLS 7.1 10/3/uL (4.5-10.5)
[2016-10-16 06:57] LABS: MANUAL DIFF NO %
[2016-10-16 06:58] LABS: BUN (BLOOD UREA NITROGEN) 18 MG/DL (6-23); CALCIUM, SERUM 9.1 MG/DL (8.5-10.4); CHLORIDE, SERUM 103 MMOL/L (96-112); CO2 (CARBON DIOXIDE) 30 MMOL/L (24-34); CREATININE 0.79 MG/DL (0.55-1.02); GFR AFRICAN AMERICAN 79 ML/MIN (>=60); GFR NON AFRICAN AMERICAN 68 ML/MIN (>=60); GLUCOSE, SERUM 85 MG/DL (60-99); POTASSIUM, SERUM 4.5 MMOL/L (3.5-5.3); SODIUM, SERUM 138 MMOL/L (135-148)
[2016-10-16 10:15] LABS: FERRITIN 237 NG/ML (8-252); FOLATE 24.3 NG/ML (>5.2); IRON BINDING CAPACITY 238 MCG/DL (225-410); IRON, SERUM 27 MCG/DL (35-150)
[2016-10-16 15:46] LABS: ASCORBIC ACID (UR NOT ORDER) NEG (NEG); BILIRUBIN, URINE NEGATIVE (NEG); KETONE, URINE NEGATIVE (NEG); LEUKOCYTE ESTERASE(NOT OR TRACE (NEG); WBC (NOT ORDERED) (RFLEX) 3 (0-5)
[2016-10-17 05:59] LABS: BASOPHILS 0.5 %; BASOPHILS ABSOLUTE 0.04 10/3/uL (0.0-0.16); EOSINOPHILS 3.2 %; EOSINOPHILS ABSOLUTE 0.25 10/3/uL (0.0-0.53); HEMATOCRIT 29.6 % (36.0-48.0); HEMOGLOBIN 9.2 g/dL (12.0-16.0); IMMATURE GRANULOCYTES 1.8 %; IMMATURE GRANULOCYTES ABSOLUTE 0.14 10/3/uL (0.0-0.11); LYMPHOCYTES 17.5 %; LYMPHOCYTES ABSOLUTE 1.36 10/3/uL (0.67-4.30); MANUAL DIFF NO %; MEAN CORPUS HGB CONC 31.1 g/dL (32.0-36.0); MEAN CORPUSCULAR HEMOGLOB 28.2 pg (26.0-34.0); MEAN CORPUSCULAR VOLUME 90.8 fL (80-100); MEAN PLATELET VOLUME 8.9 fL (9.2-13.0); MONOCYTES 9.8 %; MONOCYTES ABSOLUTE 0.76 10/3/uL (0.21-1.20); NEUTROPHILS 67.2 %; NEUTROPHILS ABSOLUTE 5.24 10/3/uL (2.02-8.40); PLATELET COUNT 447 10/3/uL (150-400); RBC DISTRIBUTION WIDTH 14.9 % (12.0-16.0); RED CELL COUNT 3.26 10/6/uL (4.0-5.6); WHITE BLOOD CELLS 7.8 10/3/uL (4.5-10.5)
[2016-10-17 06:02] LABS: INTERNATIONAL NORMAL RATI 1.6 UNITS (-); PROTIME (NOT ORD) 18.6 SEC (12.0-14.5)
[2016-10-17 06:05] LABS: BUN (BLOOD UREA NITROGEN) 21 MG/DL (6-23); CALCIUM, SERUM 9.2 MG/DL (8.5-10.4); CHLORIDE, SERUM 103 MMOL/L (96-112); CO2 (CARBON DIOXIDE) 29 MMOL/L (24-34); CREATININE 0.84 MG/DL (0.55-1.02); GFR AFRICAN AMERICAN 73 ML/MIN (>=60); GFR NON AFRICAN AMERICAN 63 ML/MIN (>=60); GLUCOSE, SERUM 101 MG/DL (60-99); POTASSIUM, SERUM 4.8 MMOL/L (3.5-5.3); SODIUM, SERUM 140 MMOL/L (135-148)
[2016-10-18 06:43] LABS: MEAN CORPUSCULAR HEMOGLOB 29.6 pg (26.0-34.0); MEAN CORPUSCULAR VOLUME 88.1 fL (80-100); MEAN PLATELET VOLUME 8.7 fL (9.2-13.0); PLATELET COUNT 321 10/3/uL (150-400); RBC DISTRIBUTION WIDTH 15.1 % (12.0-16.0)
[2016-10-18 06:44] LABS: HEMATOCRIT 23.8 % (36.0-48.0); MANUAL DIFF YES %; MEAN CORPUS HGB CONC 33.6 g/dL (32.0-36.0); WHITE BLOOD CELLS 11.2 10/3/uL (4.5-10.5)
[2016-10-18 06:50] LABS: INTERNATIONAL NORMAL RATI 1.7 UNITS (-); PROTIME (NOT ORD) 20.1 SEC (12.0-14.5)
[2016-10-18 06:57] LABS: BUN (BLOOD UREA NITROGEN) 17 MG/DL (6-23); CALCIUM, SERUM 7.9 MG/DL (8.5-10.4); CHLORIDE, SERUM 106 MMOL/L (96-112); CO2 (CARBON DIOXIDE) 26 MMOL/L (24-34); GFR AFRICAN AMERICAN 91 ML/MIN (>=60); GFR NON AFRICAN AMERICAN 78 ML/MIN (>=60); GLUCOSE, SERUM 94 MG/DL (60-99); SODIUM, SERUM 140 MMOL/L (135-148)
[2016-10-18 07:21] LABS: BAND NEUTROPHILS 2 %; IMMATURE GRANS ABSOLUTE (CALC) 0.22 10/3/uL (0.0-0.11); LYMPHOCYTES 8 %; METAMYELOCYTES 2 %; MONOCYTES 6 %; MONOCYTES ABSOLUTE (CALC) 0.67 10/3/uL (0.21-1.20); NEUTROPHILS ABSOLUTE (CALC) 9.41 10/3/uL (2.02-8.40); PLATELET ESTIMATE ADQ (ADEQUATE); RBC MORPHOLOGY NORM (NORMAL); SEGMENTED NEUTROPHIL (0) 82 %; TOTAL NUCLEATED CELLS 100
[2016-10-19 06:48] LABS: BASOPHILS 0.3 %; BASOPHILS ABSOLUTE 0.03 10/3/uL (0.0-0.16); EOSINOPHILS 1.6 %; EOSINOPHILS ABSOLUTE 0.18 10/3/uL (0.0-0.53); HEMOGLOBIN 10.2 g/dL (12.0-16.0); IMMATURE GRANULOCYTES 1.4 %; IMMATURE GRANULOCYTES ABSOLUTE 0.16 10/3/uL (0.0-0.11); LYMPHOCYTES 9.8 %; LYMPHOCYTES ABSOLUTE 1.11 10/3/uL (0.67-4.30); MANUAL DIFF NO %; MEAN CORPUS HGB CONC 32.9 g/dL (32.0-36.0); MEAN CORPUSCULAR HEMOGLOB 28.7 pg (26.0-34.0); MEAN CORPUSCULAR VOLUME 87.1 fL (80-100); MEAN PLATELET VOLUME 9.1 fL (9.2-13.0); MONOCYTES 9.5 %; MONOCYTES ABSOLUTE 1.07 10/3/uL (0.21-1.20); NEUTROPHILS 77.4 %; NEUTROPHILS ABSOLUTE 8.75 10/3/uL (2.02-8.40); PLATELET COUNT 334 10/3/uL (150-400); RBC DISTRIBUTION WIDTH 16.6 % (12.0-16.0); RED CELL COUNT 3.56 10/6/uL (4.0-5.6); WHITE BLOOD CELLS 11.3 10/3/uL (4.5-10.5)
[2016-10-19 06:57] LABS: INTERNATIONAL NORMAL RATI 1.3 UNITS (-)
[2016-10-19 07:02] LABS: CALCIUM, SERUM 8.3 MG/DL (8.5-10.4); CHLORIDE, SERUM 103 MMOL/L (96-112); CO2 (CARBON DIOXIDE) 29 MMOL/L (24-34); GFR AFRICAN AMERICAN 53 ML/MIN (>=60); GFR NON AFRICAN AMERICAN 45 ML/MIN (>=60); GLUCOSE, SERUM 112 MG/DL (60-99); POTASSIUM, SERUM 4.9 MMOL/L (3.5-5.3); SODIUM, SERUM 137 MMOL/L (135-148)
[2016-10-19 07:03] LABS: BUN (BLOOD UREA NITROGEN) 25 MG/DL (6-23)
[2016-10-20 06:38] LABS: INTERNATIONAL NORMAL RATI 1.8 UNITS (-)
[2016-10-20 06:39] LABS: PROTIME (NOT ORD) 20.3 SEC (12.0-14.5)
[2016-10-20 06:47] LABS: BUN (BLOOD UREA NITROGEN) 23 MG/DL (6-23); CALCIUM, SERUM 8.5 MG/DL (8.5-10.4); CHLORIDE, SERUM 104 MMOL/L (96-112); CO2 (CARBON DIOXIDE) 27 MMOL/L (24-34); CREATININE 1.02 MG/DL (0.55-1.02); GFR AFRICAN AMERICAN 58 ML/MIN (>=60); GFR NON AFRICAN AMERICAN 50 ML/MIN (>=60); GLUCOSE, SERUM 89 MG/DL (60-99); POTASSIUM, SERUM 4.6 MMOL/L (3.5-5.3); SODIUM, SERUM 136 MMOL/L (135-148)
[2016-10-20 06:57] LABS: BASOPHILS 0.5 %; BASOPHILS ABSOLUTE 0.04 10/3/uL (0.0-0.16); EOSINOPHILS ABSOLUTE 0.25 10/3/uL (0.0-0.53); HEMATOCRIT 28.9 % (36.0-48.0); HEMOGLOBIN 9.2 g/dL (12.0-16.0); IMMATURE GRANULOCYTES 1.4 %; IMMATURE GRANULOCYTES ABSOLUTE 0.12 10/3/uL (0.0-0.11); LYMPHOCYTES 13.3 %; LYMPHOCYTES ABSOLUTE 1.12 10/3/uL (0.67-4.30); MEAN CORPUS HGB CONC 31.8 g/dL (32.0-36.0); MEAN CORPUSCULAR HEMOGLOB 28.8 pg (26.0-34.0); MEAN PLATELET VOLUME 9.2 fL (9.2-13.0); MONOCYTES 11.4 %; MONOCYTES ABSOLUTE 0.96 10/3/uL (0.21-1.20); NEUTROPHILS 70.4 %; NEUTROPHILS ABSOLUTE 5.92 10/3/uL (2.02-8.40); PLATELET COUNT 309 10/3/uL (150-400); RBC DISTRIBUTION WIDTH 16.2 % (12.0-16.0); WHITE BLOOD CELLS 8.4 10/3/uL (4.5-10.5)
[2016-10-20 07:03] LABS: MANUAL DIFF NO %; MEAN CORPUSCULAR VOLUME 90.3 fL (80-100)
[2016-10-21 07:02] LABS: INTERNATIONAL NORMAL RATI 1.8 UNITS (-); PROTIME (NOT ORD) 20.7 SEC (12.0-14.5)
[2016-10-21 07:07] LABS: BASOPHILS 0.4 %; BASOPHILS ABSOLUTE 0.03 10/3/uL (0.0-0.16); EOSINOPHILS 2.7 %; EOSINOPHILS ABSOLUTE 0.21 10/3/uL (0.0-0.53); HEMATOCRIT 27.8 % (36.0-48.0); HEMOGLOBIN 8.8 g/dL (12.0-16.0); IMMATURE GRANULOCYTES 1.4 %; IMMATURE GRANULOCYTES ABSOLUTE 0.11 10/3/uL (0.0-0.11); LYMPHOCYTES 12.9 %; LYMPHOCYTES ABSOLUTE 1.01 10/3/uL (0.67-4.30); MEAN CORPUS HGB CONC 31.7 g/dL (32.0-36.0); MEAN CORPUSCULAR HEMOGLOB 28.6 pg (26.0-34.0); MEAN CORPUSCULAR VOLUME 90.3 fL (80-100); MEAN PLATELET VOLUME 9.2 fL (9.2-13.0); MONOCYTES 14.9 %; MONOCYTES ABSOLUTE 1.16 10/3/uL (0.21-1.20); NEUTROPHILS 67.7 %; NEUTROPHILS ABSOLUTE 5.28 10/3/uL (2.02-8.40); PLATELET COUNT 381 10/3/uL (150-400); RBC DISTRIBUTION WIDTH 15.8 % (12.0-16.0); RED CELL COUNT 3.08 10/6/uL (4.0-5.6); WHITE BLOOD CELLS 7.8 10/3/uL (4.5-10.5)
[2016-10-21 07:10] LABS: BUN (BLOOD UREA NITROGEN) 22 MG/DL (6-23); CALCIUM, SERUM 8.9 MG/DL (8.5-10.4); CHLORIDE, SERUM 102 MMOL/L (96-112); CO2 (CARBON DIOXIDE) 29 MMOL/L (24-34); CREATININE 0.95 MG/DL (0.55-1.02); GFR AFRICAN AMERICAN 63 ML/MIN (>=60); GFR NON AFRICAN AMERICAN 54 ML/MIN (>=60); GLUCOSE, SERUM 85 MG/DL (60-99); POTASSIUM, SERUM 4.2 MMOL/L (3.5-5.3); SODIUM, SERUM 136 MMOL/L (135-148)
[2016-10-21 07:11] LABS: MANUAL DIFF NO %
[2016-10-22 06:21] LABS: BASOPHILS 0.7 %; BASOPHILS ABSOLUTE 0.05 10/3/uL (0.0-0.16); EOSINOPHILS 3.5 %; EOSINOPHILS ABSOLUTE 0.26 10/3/uL (0.0-0.53); HEMATOCRIT 27.5 % (36.0-48.0); HEMOGLOBIN 8.7 g/dL (12.0-16.0); IMMATURE GRANULOCYTES 1.2 %; IMMATURE GRANULOCYTES ABSOLUTE 0.09 10/3/uL (0.0-0.11); LYMPHOCYTES 13.1 %; LYMPHOCYTES ABSOLUTE 0.97 10/3/uL (0.67-4.30); MEAN CORPUS HGB CONC 31.6 g/dL (32.0-36.0); MEAN CORPUSCULAR HEMOGLOB 28.5 pg (26.0-34.0); MEAN CORPUSCULAR VOLUME 90.2 fL (80-100); MEAN PLATELET VOLUME 8.8 fL (9.2-13.0); MONOCYTES 12.9 %; MONOCYTES ABSOLUTE 0.95 10/3/uL (0.21-1.20); NEUTROPHILS 68.6 %; NEUTROPHILS ABSOLUTE 5.06 10/3/uL (2.02-8.40); PLATELET COUNT 402 10/3/uL (150-400); RBC DISTRIBUTION WIDTH 15.6 % (12.0-16.0); RED CELL COUNT 3.05 10/6/uL (4.0-5.6); WHITE BLOOD CELLS 7.4 10/3/uL (4.5-10.5)
[2016-10-22 06:22] LABS: MANUAL DIFF NO %
[2016-10-22 06:25] LABS: INTERNATIONAL NORMAL RATI 2.2 UNITS (-)
[2016-10-22 06:30] LABS: PROTIME (NOT ORD) 23.9 SEC (12.0-14.5)
[2016-10-22 06:33] LABS: BUN (BLOOD UREA NITROGEN) 19 MG/DL (6-23); CALCIUM, SERUM 8.9 MG/DL (8.5-10.4); CHLORIDE, SERUM 103 MMOL/L (96-112); CO2 (CARBON DIOXIDE) 33 MMOL/L (24-34); GFR AFRICAN AMERICAN 77 ML/MIN (>=60); GFR NON AFRICAN AMERICAN 67 ML/MIN (>=60); GLUCOSE, SERUM 101 MG/DL (60-99); PHOSPHORUS, SERUM 3.4 MG/DL (2.5-4.5); POTASSIUM, SERUM 4.3 MMOL/L (3.5-5.3); SODIUM, SERUM 140 MMOL/L (135-148)
[2016-10-23 04:56] LABS: BUN (BLOOD UREA NITROGEN) 19 MG/DL (6-23); CHLORIDE, SERUM 103 MMOL/L (96-112); CREATININE 0.96 MG/DL (0.55-1.02); GFR AFRICAN AMERICAN 62 ML/MIN (>=60); GFR NON AFRICAN AMERICAN 54 ML/MIN (>=60); GLUCOSE, SERUM 93 MG/DL (60-99); POTASSIUM, SERUM 4.7 MMOL/L (3.5-5.3); SODIUM, SERUM 137 MMOL/L (135-148)
[2016-10-23 05:00] LABS: CO2 (CARBON DIOXIDE) 28 MMOL/L (24-34)
[2016-10-23 07:14] LABS: HEMATOCRIT 31.6 % (36.0-48.0); HEMOGLOBIN 9.8 g/dL (12.0-16.0)
[2016-10-23 09:07] LABS: INTERNATIONAL NORMAL RATI 2.3 UNITS (-); PROTIME (NOT ORD) 24.7 SEC (12.0-14.5)
[2016-10-23 09:17] LABS: BASOPHILS 0.9 %; BASOPHILS ABSOLUTE 0.06 10/3/uL (0.0-0.16); EOSINOPHILS 6.3 %; EOSINOPHILS ABSOLUTE 0.43 10/3/uL (0.0-0.53); IMMATURE GRANULOCYTES 1.5 %; LYMPHOCYTES 17.5 %; MEAN CORPUS HGB CONC 31.1 g/dL (32.0-36.0); MEAN CORPUSCULAR HEMOGLOB 28.7 pg (26.0-34.0); MEAN CORPUSCULAR VOLUME 92.4 fL (80-100); MEAN PLATELET VOLUME 8.8 fL (9.2-13.0); MONOCYTES 13.3 %; MONOCYTES ABSOLUTE 0.91 10/3/uL (0.21-1.20); NEUTROPHILS 60.5 %; NEUTROPHILS ABSOLUTE 4.14 10/3/uL (2.02-8.40); PLATELET COUNT 446 10/3/uL (150-400); RBC DISTRIBUTION WIDTH 15.5 % (12.0-16.0); RED CELL COUNT 3.41 10/6/uL (4.0-5.6); WHITE BLOOD CELLS 6.8 10/3/uL (4.5-10.5)
[2016-10-23 09:19] LABS: MANUAL DIFF NO %
[2016-10-23 12:57] LABS: BASOPHILS 0.8 %; BASOPHILS ABSOLUTE 0.06 10/3/uL (0.0-0.16); EOSINOPHILS 4.7 %; EOSINOPHILS ABSOLUTE 0.34 10/3/uL (0.0-0.53); HEMATOCRIT 32.4 % (36.0-48.0); IMMATURE GRANULOCYTES 1.4 %; LYMPHOCYTES 12.3 %; LYMPHOCYTES ABSOLUTE 0.89 10/3/uL (0.67-4.30); MANUAL DIFF NO %; MEAN CORPUS HGB CONC 30.9 g/dL (32.0-36.0); MEAN CORPUSCULAR HEMOGLOB 28.3 pg (26.0-34.0); MEAN CORPUSCULAR VOLUME 91.8 fL (80-100); MONOCYTES 10.9 %; MONOCYTES ABSOLUTE 0.79 10/3/uL (0.21-1.20); NEUTROPHILS 69.9 %; NEUTROPHILS ABSOLUTE 5.08 10/3/uL (2.02-8.40); PLATELET COUNT 446 10/3/uL (150-400); RBC DISTRIBUTION WIDTH 15.6 % (12.0-16.0); RED CELL COUNT 3.53 10/6/uL (4.0-5.6); WHITE BLOOD CELLS 7.3 10/3/uL (4.5-10.5)
[2016-10-24 05:31] LABS: INTERNATIONAL NORMAL RATI 2.2 UNITS (-); PROTIME (NOT ORD) 24.1 SEC (12.0-14.5)
== END 2016-10-24 14:52 | DRG 466 ==
LOC: 2SO 19:49
PROVIDERS: Hospitalist; Internal Medicine; Internal Medicine Infectious Disease; Specialist
PROC: 0SP90JZ Removal of Synthetic Substitute from Right Hip Joint, Open Approach (ICD-10-PCS; 2016-10-17)
PROC: 0SR90JZ Replacement of Right Hip Joint with Synthetic Substitute, Open Approach (ICD-10-PCS; principal; 2016-10-17 18:45)
PROC: 05HN33Z Insertion of Infusion Device into Left Internal Jugular Vein, Percutaneous Approach (ICD-10-PCS; 2016-10-19)
PROC: 05HM33Z Insertion of Infusion Device into Right Internal Jugular Vein, Percutaneous Approach (ICD-10-PCS; 2016-10-22)
DX: T84.51XA Infection and inflammatory reaction due to internal right hip prosthesis, initial encounter (principal); A41.01 Sepsis due to Methicillin susceptible Staphylococcus aureus; M86.151 Other acute osteomyelitis, right femur; E11.22 Type 2 diabetes mellitus with diabetic chronic kidney disease; F03.90 Unspecified dementia, unspecified severity, without behavioral disturbance, psychotic disturbance, mood disturbance, and anxiety; I48.2 Chronic atrial fibrillation; I49.5 Sick sinus syndrome; E66.01 Morbid (severe) obesity due to excess calories; D62 Acute posthemorrhagic anemia; E03.9 Hypothyroidism, unspecified; K58.9 Irritable bowel syndrome, unspecified; I12.9 Hypertensive chronic kidney disease with stage 1 through stage 4 chronic kidney disease, or unspecified chronic kidney disease; N18.9 Chronic kidney disease, unspecified; E78.00 Pure hypercholesterolemia, unspecified; I34.0 Nonrheumatic mitral (valve) insufficiency; Z96.641 Presence of right artificial hip joint; Z79.01 Long term (current) use of anticoagulants; Z79.4 Long term (current) use of insulin; Z79.899 Other long term (current) drug therapy; Z86.73 Personal history of transient ischemic attack (TIA), and cerebral infarction without residual deficits; Z88.2 Allergy status to sulfonamides; Z83.3 Family history of diabetes mellitus
CPT/HCPCS: 20610; 36415; 36569; 71010; 72148; 72158; 72170; 72195; 72196; 73502-RT; 73552-RT; 74176; 77002; 80048; 80053; 81001; 82607; 82728; 82746; 82962; 83036; 83540; 83550; 83735; 83880; 84100; 84443; 84484; 85025; 85610; 85652; 85730; 86140; 86850; 86900; 86901; 86920; 87015; 87040; 87070; 87075; 87102; 87116; 87205; 87641; 88300; 88304; 88305; 88311; 88331; 88332; 89060; 93005; 97110-GO; 97110-GP; 97116-GP; 97162-GP; 97165-GO; 97530-GP; 97535-GO; 99152; A9270-GY; A9577; C1713; C1751; C1776; G8987-CK-GO; G8988-CJ-GO; J0360; J0461; J0690; J1170; J1885; J1940; J2270; J2274; J2370; J2405; J2710; J2795; J3010; J3260; J3370; P9016; P9047; Q9967

== ENCOUNTER 2016-11-12 21:37 | Inpatient (IN) | payer MEDICARE, OTHER ==
--- NOTE | ~2016-11-12 | CN ---
Consultation Report [facility] [address] [place]. [address] NAME: ANDERS GIPSON : 30 STATUS : ADM [facility]ana PAT#: [id number] AGE: 86 ADM/REG DATE : 11/12/16 MR#: [id number] REPORT SERV DATE: 11/13/16 DICTATED BY: CHELA ENGLISH DATE: 11/13/16 REPORT STATUS : Draft TRANSCRIBED BY: MODL DATE: 11/13/16 CONSULTATION NOTE DATE OF CONSULTATION: 11/13/2016 REFERRING PHYSICIAN: Dr. Han. PRIMARY INSTRUMENT DESIGNER: Dr. Campa. CHIEF COMPLAINT: Shortness of breath and wheezing and chest tightness. REASON FOR CONSULTATION: Same. SOURCE: Patient, patient's daughter, and chart. HISTORY OF PRESENT ILLNESS: Ms. Gipson is a very pleasant 86-year-old white woman with history of chronic atrial fibrillation, on Jantoven anticoagulation as well as hypertension who was followed by Dr. Chela Campa. He last saw her on 10/01/2016. Since then, she was hospitalized at [facility] on October 12 for bacteria in the blood according to the patient's daughter and was transferred to [facility]. She had right hip redo replacement on 10/17/2016. She was hospitalized for about a week and discharged to [facility] on 10/21/2016. She has been short of breath in rehab. She has had wheezing. She pulled out her PICC line. She had tightness in her chest and was sent to [facility] where she was admitted for further care. She was seen by Dr. Han, and cardiac testing was performed, and we were asked to see her in consultation. She has been on antibiotics but she has had a low-grade fever. She feels okay now but it hurts particularly the lower right side of her abdomen when she tries to move around. She has not had any palpitations or syncope. Her legs have been swelling. Her blood pressure has been up. REVIEW OF SYSTEMS: All other systems are negative. ALLERGIES: AT HOME INCLUDED SULFA. MEDICATIONS AT HOME: Included albuterol; Norvasc; Ancef; Celexa; Klonopin; Voltaren gel; Colace; Aricept; famotidine; ferrous sulfate; furosemide; hydrocodone; levothyroxine; loratadine; memantine; multivitamins; warfarin; and polyethylene glycol. CARDIAC RISK FACTORS: Diabetes, hypertension. Denies cholesterol, tobacco, or family history. PAST MEDICAL HISTORY: Significant for atrial fibrillation for years. She has been on blood thinners. Hypothyroidism on replacement. Reported mini-stroke, possible dementia on Namenda and Aricept. Right hip replacement 2004. Right hip replacement 2007. Right hip Consultation Report [place] [address]. [address] NAME: ANDERS GIPSON : 30 STATUS : ADM Chana PAT#: [id number] AGE: 86 ADM/REG DATE : 11/12/16 MR#: [id number] REPORT SERV DATE: 11/13/16 DICTATED BY: CHELA ENGLISH DATE: 11/13/16 REPORT STATUS : Draft TRANSCRIBED BY: MONICA DATE: 11/13/16 replacement again for infection on 10/17/[address] Ross. Status post gallbladder surgery. Status post cataract surgery. SOCIAL HISTORY: The patient lives in [place], [place]. She is . She has 3 children, 1 of myocardial infarction at age 42. Her daughter is with her today. The patient is retired. FAMILY HISTORY: Son had myocardial infarction at age 42. Parents, no significant coronary disease at young age. PHYSICAL EXAMINATION: GENERAL: She is an acutely and chronically ill-appearing, very elderly white woman, mildly short of breath. VITAL SIGNS: Blood pressure 176/90, pulse 73, and temperature 97.7. Weight is 75 kilos. Height is 160 cm. HEENT: Sclerae anicteric. Lips without cyanosis. Carotids 2+ and symmetrical. Right carotid bruit. No JVD. No thyromegaly. LUNGS: Wheezes throughout. Fair air movement. No use of accessory muscles. She is on oxygen. Oxygen saturation on 2 L is 97%. HEART: Regular rate and rhythm with 2/6 systolic murmur. No heaves or thrills. ABDOMEN: Positive bowel sounds. Soft, nontender. EXTREMITIES: Pulses 2+ and symmetrical, 2+ edema. Swelling regarding the right hip. BACK: No CVA tenderness. MUSCULOSKELETAL: Diminished tone. NEUROLOGIC: Alert and oriented x3. IMAGING DATA: EKG reveals the atrial fibrillation with slow ventricular response. Cannot rule out inferior myocardial infarction of undetermined age, anterior myocardial infarction of undetermined age. ST-T wave changes consistent with lateral ischemia. LABORATORY EXAMINATION: Chest x-ray portable reveals interval development of pulmonary vascular congestion and moderate pulmonary edema. Cardiomegaly unchanged. The white count is 8.2, hemoglobin 9.4, hematocrit 30.7, and platelets 323,000. INR 1.8. PTT of 41.3. BNP level is down to 387. The procalcitonin is less than 0.05. Sodium 143, potassium 3.4, chloride 104, CO2 of 35, glucose 101, BUN 9, creatinine of 0.77, calcium 9.1, magnesium 2.4, and phosphorus 2.3. Troponin 0.03. TSH of 10.0. Initial BNP was 666. The urinalysis specific gravity 1.017, pH 6.0, protein 30, trace leukocyte esterase, 1 red cell, and 4 white cells. She also had cardiac testing today including echocardiogram LVEF 55%, mildly dilated right ventricle with normal RV systolic function. Mild left atrial enlargement. [id number] mitral and tricuspid regurgitation. She had a thallium stress test, imaging demonstrated mild inferior ischemia post LVEF of greater than 60%, overall low risk vasodilator stress test. Consultation Report [place] [id number] [place]. [address] NAME: ANDERS GIPSON : 30 STATUS : ADM [facility] PAT#: [id number] AGE: 86 ADM/REG DATE : 11/12/16 MR#: [id number] REPORT SERV DATE: 11/13/16 DICTATED BY: CHELA ENGLISH DATE: 11/13/16 REPORT STATUS : Draft TRANSCRIBED BY: MONICA DATE: 11/13/16 IMPRESSION: 1. Volume overload with pulmonary edema. 2. Normal left ventricular systolic function by echo. 3. Qkoj-or-vmecihez mitral and tricuspid regurgitation by echo. 4. Reported MSSA bacteremia thought possibly secondary to right hip infection. 5. Status post removal of old hardware on 10/16/2016, by Dr. Ross. 6. Abnormal stress test with possible mild inferior ischemia. Possible coronary artery disease. No evidence of acute myocardial infarction. 7. Right carotid bruit. 8. Atrial fibrillation on Coumadin anticoagulation therapy. Slightly subtherapeutic INR. 9. Anemia. 10.History of dementia on Aricept and Namenda. 11.Hypothyroidism on replacement with elevated TSH. RECOMMENDATIONS: 1. Diuresis with IV Lasix. 2. Lares to bedside drain. 3. Aspirin 81 mg p.o. daily. 4. Check fasting lipid profile, empiric statin therapy. 5. Add Imdur 30 mg p.o. daily and carvedilol 6.25 mg p.o. b.i.d. 6. Electrolyte replacement protocol. 7. BOB hose knee high wear continuously. 8. Surveillance blood cultures per Infectious Diseases. 9. Check D-dimer and free T4. 10.I would recommend medical therapy for possible coronary artery disease at this time should she develop refractory symptoms or recover from her bacteremia. Could consider elective cardiac catheterization at a later time. 11.Carotid ultrasound at some point. 12.Further recommendations following above. HAYES/MONICA Chela English M.D. / [id number] CC: Joon Han M.D.
--- NOTE | ~2016-11-12 | HP ---
History And Physical [address] [place]. [address] NAME: ANDERS GIPSON : 30 STATUS : ADM Chana PAT#: [id number] AGE: 86 ADM/REG DATE : 11/12/16 MR#: [id number] REPORT SERV DATE: 11/13/16 DICTATED BY: SAADIA VILLALPANDO DATE: 11/13/16 REPORT STATUS : Draft TRANSCRIBED BY: MODL DATE: 11/13/16 DATE OF ADMISSION: 11/12/2016 CHIEF COMPLAINT: An 86-year-old female, currently at [facility] being treated with IV antibiotics for an MSSA bacteremia and recent right hip replacement, now presenting with pulling out her PICC line and chest discomfort. HISTORY OF PRESENT ILLNESS: The patient's history was obtained through careful interview with the patient, coupled with review of [facility] medical records. The patient was hospitalized earlier this year with a right hip replacement and an MSSA bacteremia. She recovered from surgery well and has been transferred to [facility] to receive IV antibiotics Ancef 2 g IV q.8 hours. Unfortunately on the night of admission, she pulled out her PICC line and had no IV access for continued antibiotic therapy so was sent to the emergency department for further stabilization and evaluation for replacement of the PICC line. But also, the patient has been having chest discomfort. She describes it as an aching discomfort in the middle of her chest, but is unable to describe a quality or severity of the pain. Otherwise, she has also had a nonproductive cough, but no shortness of breath. She has had sinus drainage. She describes mild right hip pain. The patient states that she has been participating with therapist with some improvement at [facility]. REVIEW OF SYSTEMS: Otherwise, a 14-point review of systems was obtained and was negative. PAST MEDICAL HISTORY: 1. 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 2. Dementia. 3. Diabetes. 4. Methicillin-sensitive Staphylococcus aureus bacteremia. 5. Hypertension. 6. Elevated cholesterol. 7. Congestive heart failure. 8. Irritable bowel syndrome. 9. Hypothyroidism. 10.Anemia. 11.Transient ischemic attack. 12.Right adrenal cyst. PAST SURGICAL HISTORY: 1. Right hip surgery in 2011 with a redo just in 2016, seen by Dr. Ross. History And Physical [address] [place]. [address] NAME: ANDERS GIPSON : 30 STATUS : ADM Chana PAT#: [id number] AGE: 86 ADM/REG DATE : 11/12/16 MR#: [id number] REPORT SERV DATE: 11/13/16 DICTATED BY: SAADIA VILLALPANDO DATE: 11/13/16 REPORT STATUS : Draft TRANSCRIBED BY: MODL DATE: 11/13/16 2. Cholecystectomy. 3. Hiatal hernia surgery. ALLERGIES: TO SULFA. SOCIAL HISTORY: She has been a for more than 20 years. Lives in [place], [place], prior to being hospitalized at [facility]. She has two daughters, one son. The son actually lives next door to patient. No tobacco abuse. No alcohol abuse. FAMILY HISTORY: She had a son who from pink poisoning. A strong family history of diabetes. CURRENT MEDICATIONS: Include albuterol inhaler, Norvasc 10 mg p.o. daily, Ancef 2 g IV q.8 hours, Celexa 20 mg p.o. daily, Klonopin 0.5 mg at bedtime, diclofenac gel, Colace 100 mg p.o. t.i.d., Aricept 10 mg p.o. daily, Pepcid 20 mg p.o. daily, iron supplement, Lasix 20 mg p.o. daily, hydrocodone p.r.n., levothyroxine 88 mcg p.o. daily, Claritin 10 mg p.o. daily, Namenda 5 mg p.o. daily and 10 mg at night, multivitamin daily, MiraLAX packet daily, and Coumadin 2 mg p.o. daily. PHYSICAL EXAMINATION: VITAL SIGNS: Temperature 98.5, pulse 64, blood pressure 165/53, respiratory rate 18, and O2 saturation 99% on room air. GENERAL: A chronically ill-appearing female, but in no evidence of acute distress at this time. HEENT: Pupils are equal, round, and reactive to light. No conjunctival pallor. No scleral icterus. Nares are patent. Oropharynx is clear of obstruction. Moist mucous membranes. NECK: Trachea midline. No thyromegaly. LYMPH: No cervical lymphadenopathy. No supraclavicular lymphadenopathy. RESPIRATORY: Clear to auscultation at bases. No wheezes, no rales, no rhonchi at all. The patient has a nonlabored respiratory effort. CARDIOVASCULAR: Irregularly irregular rhythm. The patient has a rumbling harsh 3/6 systolic murmur that is auscultated best through the precordium by my exam. No rubs or gallops though. She has chronic appearing lower extremity edema, the right leg greater than the left. ABDOMEN: Soft, nontender, nondistended. Normal bowel sounds auscultated throughout. No hepatosplenomegaly. DERMATOLOGICAL: Warm and dry extremities. No pallor. No cyanosis. PSYCHIATRIC: Lethargic but arousable. Oriented to location, and recent history but poorly oriented to time. She has a flat affect but claims she is in a good mood. LABORATORY DATA: White blood cell count 7.7, hemoglobin 9, hematocrit 30, platelets 335. Sodium 141, potassium 3.6, chloride 102, bicarb 36, BUN 12, creatinine 0.8, glucose 98. Brain natriuretic peptide 666. Troponin 0.03. INR 1.7. STUDIES: 1. Chest x-ray by my own evaluation shows cardiomegaly, mild pulmonary vascular congestion, but improved compared to recent chest x-ray earlier in 2017. History And Physical [address] [address] NAME: ANDERS GIPSON : 30 STATUS : ADM Chana PAT#: [id number] AGE: 86 ADM/REG DATE : 11/12/16 MR#: [id number] REPORT SERV DATE: 11/13/16 DICTATED BY: SAADIA VILLALPANDO DATE: 11/13/16 REPORT STATUS : Draft TRANSCRIBED BY: MODHerman DATE: 11/13/16 2. EKG by my own evaluation shows atrial fibrillation, T-wave inversions in leads V3 through V6. ASSESSMENT AND PLAN: 1. Methicillin-sensitive Staphylococcus aureus bacteremia. The patient pulled out PICC, will have it replaced. Obtain Infectious Disease consult for followup. 2. Murmur, seems to be in new onset ?. Check an echocardiogram to define, make certain that this might not be related to patient's MSSA bacteremia. Noted that an echocardiogram has not been performed earlier this year since the onset of the patient's bacteremia. 3. Chest pain. Check a stress test. Continue Coumadin. 4. Elevated brain natriuretic peptide. There are no rales on examination. No shortness of breath. We will monitor volume status closely. Check an echocardiogram. 5. Atrial fibrillation. Check telemetry. Pharmacy to dose Coumadin. 6. Dementia. KPL/MODL Saadia Villalpando M.D. / [id number] CC: Jed Carroll M.D. Paul Cornea, M.D.
--- NOTE | ~2016-11-12 | DS ---
Discharge Summary [facility] [address] [place]. [address] NAME: ANDERS GIPSON : 30 STATUS : DIS IN PAT#: [id number] AGE: 86 ADM/REG DATE : 11/12/16 MR#: [id number] REPORT SERV DATE: 11/17/16 DICTATED BY: VALENTE HAN DATE: 11/16/16 REPORT STATUS : Draft TRANSCRIBED BY: MODL DATE: 11/16/16 ADMISSION DATE: 11/12/2016 DISCHARGE DATE: 11/16/2016 SCIENTIFIC SOFTWARE DEVELOPER: Dr. Ventura Yost, Cardiology. DISCHARGE DIAGNOSES: 1. Chest pain consistent with coronary artery disease. 2. [id number] diastolic congestive heart failure. 3. Recent methicillin-sensitive Staphylococcus aureus bacteremia. 4. Chronic atrial fibrillation, on Coumadin, but intolerant of beta-blockers due to bradycardia. 5. Hypertension. 6. 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 7. Contraction alkalosis with diuresis. 8. Previous transient ischemic attack. 9. History of senile dementia. 10.History of irritable bowel. 11.Hypothyroidism, currently under replaced. HISTORY: This patient was in this hospital from 10/13/2016 through 10/24/2016 with methicillin-sensitive Staph aureus bacteremia, unclear site of origin. She was seen by Dr. Vazquez, was on Ancef and was still needed to complete a course of that. 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 She also had postop anemia requiring transfusion during that time. She had gone to a rehab facility to complete her Ancef antibiotic course and physical therapy and while they, accidentally pulled out her PICC line and was sent to the emergency room at [facility]. In the emergency room, she also described that she was having anterior chest discomfort in the middle of the chest, vague, deep aching along with cough. Because of these things, she was referred to our team for inpatient care. As far as the PICC line, the IV team saw the patient and replaced a new PICC line in the right arm. Infectious Disease, Dr. Vazquez confirmed that she needs to complete her Ancef course as previously planned. As far as her chest discomfort, her initial chest x-ray showed cardiomegaly and some mild vascular congestion. Echocardiogram 11/13/2016, showed left ventricular ejection fraction 55%, mild left ventricular diastolic dysfunction, mildly dilated right ventricle with normal right ventricular systolic function, moderate mitral and tricuspid insufficiency, left atrium 4.4 cm. Cardiac troponins were normal, so she underwent a myocardial perfusion image scan on 11/13/2016 demonstrating mild inferior ischemia. Ejection fraction 60% or greater. We did ask Cardiology to see her because of the chest pain and this stress test. Dr. Ventura Yost saw the patient, he recommended medical therapy given her age and her recent Discharge Summary [address] [place]. [address] NAME: ANDERS GIPSON : 30 STATUS : DIS IN PAT#: [id number] AGE: 86 ADM/REG DATE : 11/12/16 MR#: [id number] REPORT SERV DATE: 11/17/16 DICTATED BY: VALENTE HAN DATE: 11/16/16 REPORT STATUS : Draft TRANSCRIBED BY: MONICA DATE: 11/16/16 infection. The patient now has aspirin and Lipitor and Imdur added. She has had no further chest pain. She did develop hypoxia and respiratory discomfort. Her B-natriuretic peptide was elevated up to 666.0. Chest x-rays revealed worsening pulmonary edema on 11/13/2016. The patient's granddaughter indicated the patient had normally been on Lasix 40 mg daily, but at the rehab, had not been getting that and had just recently got started on 20 mg, but was not diuresing well. Cardiology and I agreed to put her on IV diuretics and she did move a lot of fluid with this and follow up chest x-ray showed decreased pulmonary congestion and she felt much more comfortable and her B-natriuretic peptide came down to 387.7. She is now felt stable for discharge on her usual baseline dose of Lasix with supplemental potassium, follow up of her electrolytes every week and weaning down off oxygen. Currently, she is on 2 L. She was also noticed to have a TSH elevation at 10.0. Free T4 was normal. This suggests under replacement of her thyroid, so we increased her levothyroxine from 88 mcg to 100 mcg daily. She is returning now to the alf facility for the completion of her physical therapy and antibiotic course. She will also need, as mentioned above, weekly BMP and magnesium since she is on her diuretics and TSH rechecked in three weeks. She is still on her Coumadin. At the time of discharge, her INR was therapeutic at 2.1. She will need a PT/INR weekly. DISCHARGE MEDICATIONS: Norvasc 10 mg daily; aspirin 81 mg daily; Voltaren Gel applied topically; Lipitor 40 mg at bedtime; Ancef 2 g IV every eight hours through 11/29/2016, then remove PICC line and stop the Ancef; Celexa 20 mg daily, Colace 100 mg t.i.d.; Aricept 10 mg at bedtime; Pepcid 20 mg daily; iron sulfate 325 mg twice a day (hemoglobin at discharge 8.9); furosemide 40 mg daily; levothyroxine 100 mcg daily; Claritin 10 mg daily; Namenda she takes 10 mg in morning and 5 mg at bedtime; multivitamin once a day; MiraLAX one packet daily; KCl 20 mEq daily; warfarin 2 mg daily; Klonopin 0.5 mg at bedtime, hold if sedated, this is a chronic medicine for her; albuterol nebulized q.6 hours p.r.n. shortness of breath; Tylenol 650 q.6 hours p.r.n. minor pain; [place] 7.5/325 a tablet t.i.d. p.r.n. more significant pain, #20, prescribed, no refill; glucose tablets p.r.n. hypoglycemia. I spent 46 minutes today with the patient and with discharge plan. DICTATED BY: Jed Carroll/MONICA Valente Han M.D. Discharge Summary [address] [place] [address] NAME: ANDERS GIPSON : 30 STATUS : DIS IN PAT#: [id number] AGE: 86 ADM/REG DATE : 11/12/16 MR#: [id number] REPORT SERV DATE: 11/17/16 DICTATED BY: VALENTE HAN DATE: 11/16/16 REPORT STATUS : Draft TRANSCRIBED BY: MONICA DATE: 11/16/16 / [id number] CC: Jed Carroll M.D. [facility] Jed Santillan M.D. Brian Mitchell, M.D.
[~2016-11-12 21:37] MED LIST: *UNABLE3; ACTOS15 PO; ARICEPT10 PO; ASAB PO; ATEN50 PO; CELEXA20 PO; CLARIT10 PO; DEMA20 PO; GABAPENTIN PO; JANTOVEN3 MG PO; KLONO5 PO; KLOR-CON M2020 MEQ PO; NAMENDA10 MG PO; NAMENDA5 PO; NITROSTAT0.4 MG SL; NORCO1 TA2 PO; NORV10 PO; SYN88 PO; VOLTAREN1 % TOP
[2016-11-12] MEDS ORDERED: C2 PO (22:45)
[2016-11-12] MEDS ORDERED: DSS PO (22:46)
[2016-11-12] MEDS ORDERED: CELEXA20 PO (22:46)
[2016-11-12] MEDS ORDERED: NORV10 PO (22:46)
[2016-11-12] MEDS ORDERED: ARICEPT10 PO (22:46)
[2016-11-12] MEDS ORDERED: PEP20 PO (22:46)
[2016-11-12] MEDS ORDERED: NAMENDA10 MG PO (22:47)
[2016-11-12] MEDS ORDERED: NAMENDA5 PO (22:47)
[2016-11-12] MEDS ORDERED: CLARIT10 PO (22:47)
[2016-11-12] MEDS ORDERED: FERROUS SULF325 M1 PO (22:48)
[2016-11-12] MEDS ORDERED: MULTIVITAMI1 PO (22:48)
[2016-11-12] MEDS ORDERED: VOLTAREN1 % TOP (22:48)
[2016-11-12] MEDS ORDERED: MIRALAX POWDER1 PKT PO (22:48)
[2016-11-12] MEDS ORDERED: LEVOTHYROXIN88 MCG PO (22:49)
[2016-11-12 22:50] LABS: BASOPHILS 0.8 %; BASOPHILS ABSOLUTE 0.06 10/3/uL (0.0-0.16); EOSINOPHILS 11.4 %; EOSINOPHILS ABSOLUTE 0.87 10/3/uL (0.0-0.53); ER CBC TAT 0 Hrs 07 Mins; HEMATOCRIT 30.6 % (36.0-48.0); HEMOGLOBIN 9.6 g/dL (12.0-16.0); IMMATURE GRANULOCYTES 0.4 %; IMMATURE GRANULOCYTES ABSOLUTE 0.03 10/3/uL (0.0-0.11); LYMPHOCYTES 21.8 %; LYMPHOCYTES ABSOLUTE 1.67 10/3/uL (0.67-4.30); MEAN CORPUS HGB CONC 31.4 g/dL (32.0-36.0); MEAN CORPUSCULAR HEMOGLOB 28.3 pg (26.0-34.0); MEAN CORPUSCULAR VOLUME 90.3 fL (80-100); MEAN PLATELET VOLUME 8.6 fL (9.2-13.0); MONOCYTES 9.2 %; NEUTROPHILS 56.4 %; NEUTROPHILS ABSOLUTE 4.32 10/3/uL (2.02-8.40); PLATELET COUNT 335 10/3/uL (150-400); RBC DISTRIBUTION WIDTH 15.6 % (12.0-16.0); RED CELL COUNT 3.39 10/6/uL (4.0-5.6); WHITE BLOOD CELLS 7.7 10/3/uL (4.5-10.5)
[2016-11-12] MEDS ORDERED: L20 PO (22:51)
[2016-11-12] MEDS ORDERED: NORCO1 TA2 PO (22:51)
[2016-11-12] MEDS ORDERED: CEFAZ1 IV (22:51)
[2016-11-12] MEDS ORDERED: KLONO5 PO (22:51)
[2016-11-12 22:52] LABS: MANUAL DIFF NO %
[2016-11-12] MEDS ORDERED: ALBUTEROL0.083 % INH (22:52)
[2016-11-12 23:02] LABS: INTERNATIONAL NORMAL RATI 1.7 UNITS (-)
[2016-11-12 23:04] LABS: PROTIME (NOT ORD) 20.2 SEC (12.0-14.5)
[2016-11-12 23:08] LABS: CALCIUM, SERUM 8.9 MG/DL (8.5-10.4); CHEST PAIN PROFILE TAT 0 Hrs 25 Mins; CHLORIDE, SERUM 102 MMOL/L (96-112); CREATININE 0.83 MG/DL (0.55-1.02); GFR AFRICAN AMERICAN 74 ML/MIN (>=60); GFR NON AFRICAN AMERICAN 64 ML/MIN (>=60); GLUCOSE, SERUM 98 MG/DL (60-99); SODIUM, SERUM 141 MMOL/L (135-148); TROPONIN I 0.03 NG/ML (<0.05)
[2016-11-12 23:10] LABS: BUN (BLOOD UREA NITROGEN) 12 MG/DL (6-23); CO2 (CARBON DIOXIDE) 36 MMOL/L (24-34); POTASSIUM, SERUM 3.6 MMOL/L (3.5-5.3)
[2016-11-13 01:23] LABS: ASCORBIC ACID (UR NOT ORDER) 40 (NEG); BILIRUBIN, URINE NEGATIVE (NEG); ER URINALYSIS TAT 0 Hrs 00 Mins; KETONE, URINE NEGATIVE (NEG); LEUKOCYTE ESTERASE(NOT OR TRACE (NEG); NITRITE (URINE) NEG (NEG); WBC (NOT ORDERED) (RFLEX) 4 (0-5)
[2016-11-13 14:20] LABS: BASOPHILS 0.6 %; BASOPHILS ABSOLUTE 0.05 10/3/uL (0.0-0.16); EOSINOPHILS 6.8 %; EOSINOPHILS ABSOLUTE 0.56 10/3/uL (0.0-0.53); HEMATOCRIT 30.7 % (36.0-48.0); HEMOGLOBIN 9.4 g/dL (12.0-16.0); IMMATURE GRANULOCYTES 0.2 %; IMMATURE GRANULOCYTES ABSOLUTE 0.02 10/3/uL (0.0-0.11); LYMPHOCYTES 16.7 %; LYMPHOCYTES ABSOLUTE 1.37 10/3/uL (0.67-4.30); MEAN CORPUS HGB CONC 30.6 g/dL (32.0-36.0); MEAN CORPUSCULAR HEMOGLOB 27.3 pg (26.0-34.0); MEAN CORPUSCULAR VOLUME 89.2 fL (80-100); MEAN PLATELET VOLUME 8.7 fL (9.2-13.0); MONOCYTES 8.1 %; MONOCYTES ABSOLUTE 0.66 10/3/uL (0.21-1.20); NEUTROPHILS 67.6 %; NEUTROPHILS ABSOLUTE 5.52 10/3/uL (2.02-8.40); PLATELET COUNT 323 10/3/uL (150-400); RBC DISTRIBUTION WIDTH 15.8 % (12.0-16.0); RED CELL COUNT 3.44 10/6/uL (4.0-5.6); WHITE BLOOD CELLS 8.2 10/3/uL (4.5-10.5)
[2016-11-13 14:21] LABS: MANUAL DIFF NO %
[2016-11-13 14:30] LABS: INTERNATIONAL NORMAL RATI 1.8 UNITS (-); PARTIAL THROMBO TIME 41.3 SEC (22.5-37.2); PROTIME (NOT ORD) 20.3 SEC (12.0-14.5)
[2016-11-13 14:45] LABS: BUN (BLOOD UREA NITROGEN) 9 MG/DL (6-23); CALCIUM, SERUM 9.1 MG/DL (8.5-10.4); CHLORIDE, SERUM 104 MMOL/L (96-112); CO2 (CARBON DIOXIDE) 35 MMOL/L (24-34); CREATININE 0.77 MG/DL (0.55-1.02); GFR AFRICAN AMERICAN 81 ML/MIN (>=60); GFR NON AFRICAN AMERICAN 70 ML/MIN (>=60); GLUCOSE, SERUM 101 MG/DL (60-99); POTASSIUM, SERUM 3.4 MMOL/L (3.5-5.3); SGOT(AST) 19 U/L (5-40); SGPT(ALT) 7 U/L (5-65); SODIUM, SERUM 143 MMOL/L (135-148); TOTAL BILIRUBIN 0.4 MG/DL (0-1.2); TROPONIN I 0.03 NG/ML (<0.05)
[2016-11-13 14:47] LABS: PHOSPHORUS, SERUM 2.3 MG/DL (2.5-4.5); TOTAL PROTEIN 7.7 G/DL (6.0-8.5)
[2016-11-13 14:48] LABS: A/G RATIO 0.6 (0.7-1.9); ALKALINE PHOSPHATASE 157 U/L (45-117); GLOBULIN 4.7 G/DL (2.5-4.1)
[2016-11-13 16:10] LABS: PROCALCITONIN <0.05 ng/mL (<0.5)
[2016-11-14 05:07] LABS: BASOPHILS 0.6 %; BASOPHILS ABSOLUTE 0.04 10/3/uL (0.0-0.16); EOSINOPHILS 7.3 %; EOSINOPHILS ABSOLUTE 0.47 10/3/uL (0.0-0.53); IMMATURE GRANULOCYTES 0.3 %; IMMATURE GRANULOCYTES ABSOLUTE 0.02 10/3/uL (0.0-0.11); LYMPHOCYTES 20.2 %; MEAN CORPUS HGB CONC 30.7 g/dL (32.0-36.0); MEAN CORPUSCULAR HEMOGLOB 27.4 pg (26.0-34.0); MEAN CORPUSCULAR VOLUME 89.4 fL (80-100); MEAN PLATELET VOLUME 8.8 fL (9.2-13.0); MONOCYTES 11.2 %; MONOCYTES ABSOLUTE 0.72 10/3/uL (0.21-1.20); NEUTROPHILS 60.4 %; NEUTROPHILS ABSOLUTE 3.88 10/3/uL (2.02-8.40); PLATELET COUNT 297 10/3/uL (150-400); RBC DISTRIBUTION WIDTH 15.5 % (12.0-16.0); RED CELL COUNT 2.92 10/6/uL (4.0-5.6); WHITE BLOOD CELLS 6.4 10/3/uL (4.5-10.5)
[2016-11-14 05:08] LABS: HEMATOCRIT 26.1 % (36.0-48.0); MANUAL DIFF NO %
[2016-11-14 05:25] LABS: BUN (BLOOD UREA NITROGEN) 9 MG/DL (6-23); CHLORIDE, SERUM 103 MMOL/L (96-112); CHOL/HDL RATIO(NOT ORDER) 2.8 (0-5); CHOLESTEROL 146 MG/DL (< 200); CO2 (CARBON DIOXIDE) 34 MMOL/L (24-34); CREATININE 0.77 MG/DL (0.55-1.02); FREE T4 1.04 NG/DL (0.76-1.46); GFR AFRICAN AMERICAN 81 ML/MIN (>=60); GFR NON AFRICAN AMERICAN 70 ML/MIN (>=60); GLUCOSE, SERUM 95 MG/DL (60-99); HDL CHOLESTEROL 53 MG/DL (> 49); LDL CHOLESTEROL 77 MG/DL (< 130); NON-HDL CHOLESTEROL 93 MG/DL (< 160); POTASSIUM, SERUM 3.7 MMOL/L (3.5-5.3); SODIUM, SERUM 143 MMOL/L (135-148); TRIGLYCERIDE 84 MG/DL (< 150)
[2016-11-14 05:32] LABS: INTERNATIONAL NORMAL RATI 2.1 UNITS (-); PROTIME (NOT ORD) 23.1 SEC (12.0-14.5)
[2016-11-15 04:39] LABS: BASOPHILS ABSOLUTE 0.06 10/3/uL (0.0-0.16); EOSINOPHILS 10.9 %; EOSINOPHILS ABSOLUTE 0.69 10/3/uL (0.0-0.53); HEMATOCRIT 28.4 % (36.0-48.0); HEMOGLOBIN 8.8 g/dL (12.0-16.0); IMMATURE GRANULOCYTES 0.5 %; IMMATURE GRANULOCYTES ABSOLUTE 0.03 10/3/uL (0.0-0.11); LYMPHOCYTES 22.7 %; LYMPHOCYTES ABSOLUTE 1.43 10/3/uL (0.67-4.30); MEAN CORPUSCULAR HEMOGLOB 27.8 pg (26.0-34.0); MEAN CORPUSCULAR VOLUME 89.6 fL (80-100); MEAN PLATELET VOLUME 8.9 fL (9.2-13.0); MONOCYTES 13.8 %; MONOCYTES ABSOLUTE 0.87 10/3/uL (0.21-1.20); NEUTROPHILS 51.1 %; NEUTROPHILS ABSOLUTE 3.23 10/3/uL (2.02-8.40); PLATELET COUNT 303 10/3/uL (150-400); RBC DISTRIBUTION WIDTH 15.6 % (12.0-16.0); RED CELL COUNT 3.17 10/6/uL (4.0-5.6); WHITE BLOOD CELLS 6.3 10/3/uL (4.5-10.5)
[2016-11-15 04:42] LABS: MANUAL DIFF NO %
[2016-11-15 04:46] LABS: INTERNATIONAL NORMAL RATI 2.2 UNITS (-); PROTIME (NOT ORD) 23.9 SEC (12.0-14.5)
[2016-11-15 04:50] LABS: CALCIUM, SERUM 8.7 MG/DL (8.5-10.4); CHLORIDE, SERUM 102 MMOL/L (96-112); CO2 (CARBON DIOXIDE) 38 MMOL/L (24-34); CREATININE 0.95 MG/DL (0.55-1.02); GFR AFRICAN AMERICAN 63 ML/MIN (>=60); GFR NON AFRICAN AMERICAN 54 ML/MIN (>=60); GLUCOSE, SERUM 89 MG/DL (60-99); POTASSIUM, SERUM 4.3 MMOL/L (3.5-5.3); SODIUM, SERUM 144 MMOL/L (135-148)
[2016-11-15 04:52] LABS: BUN (BLOOD UREA NITROGEN) 14 MG/DL (6-23)
[2016-11-16 06:13] LABS: BASOPHILS 1.1 %; BASOPHILS ABSOLUTE 0.07 10/3/uL (0.0-0.16); EOSINOPHILS ABSOLUTE 0.67 10/3/uL (0.0-0.53); HEMATOCRIT 29.1 % (36.0-48.0); HEMOGLOBIN 8.9 g/dL (12.0-16.0); IMMATURE GRANULOCYTES 0.3 %; IMMATURE GRANULOCYTES ABSOLUTE 0.02 10/3/uL (0.0-0.11); LYMPHOCYTES 22.8 %; LYMPHOCYTES ABSOLUTE 1.39 10/3/uL (0.67-4.30); MEAN CORPUS HGB CONC 30.6 g/dL (32.0-36.0); MEAN CORPUSCULAR HEMOGLOB 27.4 pg (26.0-34.0); MEAN CORPUSCULAR VOLUME 89.5 fL (80-100); MONOCYTES 12.8 %; MONOCYTES ABSOLUTE 0.78 10/3/uL (0.21-1.20); NEUTROPHILS ABSOLUTE 3.16 10/3/uL (2.02-8.40); PLATELET COUNT 333 10/3/uL (150-400); RBC DISTRIBUTION WIDTH 15.7 % (12.0-16.0); RED CELL COUNT 3.25 10/6/uL (4.0-5.6); WHITE BLOOD CELLS 6.1 10/3/uL (4.5-10.5)
[2016-11-16 06:15] LABS: MANUAL DIFF NO %
[2016-11-16 06:17] LABS: INTERNATIONAL NORMAL RATI 2.1 UNITS (-); PROTIME (NOT ORD) 23.2 SEC (12.0-14.5)
[2016-11-16 06:24] LABS: CALCIUM, SERUM 8.7 MG/DL (8.5-10.4); CHLORIDE, SERUM 103 MMOL/L (96-112); CO2 (CARBON DIOXIDE) 38 MMOL/L (24-34); GFR AFRICAN AMERICAN 59 ML/MIN (>=60); GFR NON AFRICAN AMERICAN 51 ML/MIN (>=60); GLUCOSE, SERUM 90 MG/DL (60-99); POTASSIUM, SERUM 4.4 MMOL/L (3.5-5.3); SODIUM, SERUM 143 MMOL/L (135-148)
[2016-11-16 06:25] LABS: BUN (BLOOD UREA NITROGEN) 18 MG/DL (6-23)
== END 2016-11-16 18:44 | DRG 293 ==
LOC: ER 21:37 → 1SO 23:59
PROVIDERS: Hospitalist; Internal Medicine Critical Care Medicine; Nurse Practitioner Acute Care
PROC: 02HV33Z Insertion of Infusion Device into Superior Vena Cava, Percutaneous Approach (ICD-10-PCS; principal; 2016-11-14)
DX: I11.0 Hypertensive heart disease with heart failure (principal); F03.90 Unspecified dementia, unspecified severity, without behavioral disturbance, psychotic disturbance, mood disturbance, and anxiety; I48.2 Chronic atrial fibrillation; I36.1 Nonrheumatic tricuspid (valve) insufficiency; E11.9 Type 2 diabetes mellitus without complications; A49.01 Methicillin susceptible Staphylococcus aureus infection, unspecified site; I50.33 Acute on chronic diastolic (congestive) heart failure; E03.9 Hypothyroidism, unspecified; I25.10 Atherosclerotic heart disease of native coronary artery without angina pectoris; K58.9 Irritable bowel syndrome, unspecified; I34.0 Nonrheumatic mitral (valve) insufficiency; E87.6 Hypokalemia; Z79.899 Other long term (current) drug therapy; Z79.01 Long term (current) use of anticoagulants; Z96.641 Presence of right artificial hip joint; Z86.73 Personal history of transient ischemic attack (TIA), and cerebral infarction without residual deficits; Z83.3 Family history of diabetes mellitus
CPT/HCPCS: 36569; 71010; 78452; 80048; 80053; 80061; 81001; 82962; 83735; 83880; 84100; 84145; 84439; 84443; 84484; 85025; 85379; 85610; 85730; 87040; 93005; 93017; 93306; 94640; 96374; 97161-GP; 97530-GP; 99285; A9270-GY; A9502; C1751; G8978-CL-GP; G8979-CK-GP; J0153; J0690